=== PATIENT | male | born 1980 | race Caucasian/White ===

== ENCOUNTER → 2017-05-19 00:20 | Emergency (ER) | payer OTHER ==
[~2017-05-19 00:20] MED LIST: HYDROmorphone INJ* 1 MG/ML CARPUJECT SYRINGE IV SLOW PU ONE; Haloperidol INJ IV/IM* 5 MG/ML AMP IM ONE; LORazepam INJ* 2 MG/ML 1 ML VIAL IM ONE; diPHENhydraMINE IV* 50 MG/ML 1 ml VIAL (BENADRYL) IM ONE
--- NOTE | 2017-05-19 02:23 | ED ---
Ismael Milligan Alfonso, scribed for Amara Verduzco MD on 05/19/17 at 0132 . Psychiatric Complaint - HPI Summary HPI Summary: LEVEL 5 CAVEAT DUE TO no cooperation and mental health agitation This patient is a 36 year old M BIBA to [facility]. Pt with a complex medical history which is obtained by father and SO. Pt with a h/o testitcular cancer with known lung mets. Pt has receoved a BMT at [facility] in March. Pt had a round of chemotherapy in Apr and is scheduled for chemotherapy again in May. Per father, pt had blood work at [facility] on Wednesday which was "all normal" Pt had an appointment in [place] today. Pt had a private consult with his care provider Father and SO do not know the conversation but suspect he may have had a positive tox screen and further care may be withdrawn second to patient contract violation - however this is not clear to be the cause. This afternoon, but became enraged. Per report + ETOH. Pt took a beer bottle and struck self in head. Pt started screaming he wanted to and said he would kill himself. Pt does take extended release morphine several times a day. Pt states he is withdrawing from his narcotics. Upom arrival to the ED pt very agitated. Pt screaming, spitting at staff. Pt reported stated he wants to , he is going to kill himself. Patients medication reviewed this visit. - History Of Current Complaint Chief Complaint: EDMentalHealth Time Seen by Provider: 05/19/17 01:31 Hx Obtained From: Patient Onset/Duration: Sudden Onset, Lasting Hours, Still Present Timing: Constant Severity Currently: Severe Character: Angry - agitated and combative Aggravating Factor(s): Recent Stress Alleviating Factor(s): Nothing Has Suicidal: Reports: Thoughts, Demonstrates Gesture - cracked a beer bottle over his head. Ingestion History: Type/Name Of Drug - ETOH - Risk Factor(s) Completed Suicide Risk Factors: Negative - Allergies/Home Medications Allergies/Adverse Reactions: Allergies Allergy/AdvReac Type Severity Reaction Status Date / Time No Known Allergies Allergy Verified 11/03/16 13:21 PMH/Surg Hx/FS Hx/Imm Hx Previously Healthy: No Endocrine/Hematology History: Denies: Hx Anticoagulant Therapy, Hx Diabetes, Hx Systemic Lupus Erythematosus Cardiovascular History: Denies: Hx Congestive Heart Failure, Hx Hypertension, Other Cardiovascular Problems/Disorders - POWER PORT PLACED 11/19/2015 Respiratory History: Reports: Hx Asthma - ONE AGO, PNEUMONIA, NO INHALERS, Hx Pneumonia, Other Respiratory Problems/Disorders - Pulmonary Nodules GI History: Reports: Other GI Disorders - CONSTIPATION History: Reports: Other Problems/Disorders - Difficulty starting stream of urine, OK NOW Denies: Hx Dialysis, Hx Renal Disease Musculoskeletal History: Reports: Hx Back Problems Denies: Hx Rheumatoid Arthritis Sensory History: Denies: Hx Contacts or Glasses, Hx Hearing Aid Opthamlomology History: Denies: Hx Contacts or Glasses Neurological History: Denies: Other Neuro Impairments/Disorders Psychiatric History: Reports: Hx Anxiety Denies: Hx Eating Disorder, Hx Suicide Attempt - Cancer History Cancer Type, Location and Year: TESTICULAR Hx Chemotherapy: No - Surgical History Surgery Procedure, Year, and Place: LEFT Knee surgery, 1999, [place]. ORCHIECTOMY, RIGHT, [facility]. PORT PLACEMENT 11/2014. abdominal lymph node resection 2015 Hx Anesthesia Reactions: No Infectious Disease History: No Infectious Disease History: Denies: Hx Tuberculosis - Rule out, Traveled Outside the in Last 30 Days - Family History Family History: R & n/C - Social History Occupation: Unemployed Lives: With Family - So - recently moved to [place] Alcohol Use: etoh 05/19/17 Alcohol Amount: etoh 05/19/17 Hx Substance Use: Yes - occasional inhaled cocaine Substance Use Type: Reports: None Substance Use Comment - Amount & Last Used: hx: Cocaine use - denies at present Hx Tobacco Use: Yes - 1/2 ppd, previously 1.5 ppd Smoking Status (MU): Former Smoker Type: Cigarettes Amount Used/How Often: 1/2 PACK A DAY Length of Time of Smoking/Using Tobacco: 15 years Have You Smoked in the Last Year: Yes Review of Systems Negative: Fever Negative: Cough Positive: Other - blood at his posterior scalp Neurological: Other - SI, ETOH, "I only have a few weeks to fucking live because of my fucking balls," agitated, and combative All Other Systems Reviewed And Are Negative: No - Comments Additional Review of Systems Comments: limited second to pt not cooperative Physical Exam Triage Information Reviewed: Yes Vital Signs On Initial Exam: Initial Vitals Temp Pulse Resp BP Pulse Ox 98 F 85 18 132/89 100 05/19/17 00:20 05/19/17 00:20 05/19/17 00:20 05/19/17 00:20 05/19/17 00:20 Vital Signs Reviewed: Yes Completion Of Physical Exam Limited Due To: Level 5 Appearance: Positive: Pain Distress - Pt enraged, yelling fighting with staff Skin: Positive: Other - pt with non suturable wound to scalp left upper anterior chest wall port Eyes: Positive: Conjunctiva Inflammed ENT: Positive: Hearing grossly normal Respiratory/Lung Sounds: Negative: Tracheal Deviation, Wheezes, Unable to speak in full sentences Cardiovascular: Positive: Normal, RRR - tachycardic Abdomen Description: Positive: Nontender, No Organomegaly, Soft Musculoskeletal: Positive: Normal, Other - BRICE - aggressively fighting Neurological: Positive: Sensory/Motor Intact, Alert, Oriented to Person Place, Time Psychiatric: Positive: Patient Uncooperative for Exam AVPU Assessment: Alert - [place] Coma Scale Best Eye Response: 4 - Spontaneous Best Motor Response: 6 - Obeys Commands Best Verbal Response: 5 - Oriented Coma Scale Total: 15 Diagnostics - Vital Signs Vital Signs Temp Pulse Resp BP Pulse Ox 05/19/17 00:20 98 F 85 18 132/89 100 - Laboratory Result Diagrams: 05/19/17 03:58 05/19/17 03:58 Lab Statement: Any lab studies that have been ordered have been reviewed, and results considered in the medical decision making process. Re-Evaluation - Re-Evaluation First Eval Re-Evaluation Time: 02:16 Comment: Spoke with the patient's father regarding the patient's case. Obtained additional history as presented in HPI. Pt calm and resting - on tele VSS. reviewed labs mariah Gill dated Thursday 05/17 - wnl Second Eval Re-Evaluation Time: 03:34 Change: Improved Comment: He is out of restraints. He is noncombative and cooperative. He reports he is in pain and is requesting his scheduled morphine. He is in agreement to place an IV. His vitals are good. He has no other complaints. Third Eval Change: Improved - Pt resting VSS labs non concerning awaiting uds MHE Course/Dx - Course Assessment/Plan: Pt presents with violent and angry yelling with thoughts to kill self. Unable to calm or rediorect pt with verbal interventions. Pt medicated and had to be placed in restraints for safety of pt and staff. Pt's father was present throughout interaction and worked closely with staff to redirect and calm. Will perform additonal examination and work to remove restrains cheryl. Pt on telemetry. Father comfortable and in agreement with plan - Differential Dx/Clinical Impression Provider Diagnosis: Depression Discharge - Discharge Plan Condition: Improved Disposition: OTHER Discharge Disposition Comment: Pt signed out Dr. Christensen - 0700 - [facility] pending Referrals: Stacie Hernandes MD [Primary Care Provider] - The documentation as recorded by the Ismael cervantes Alfonso accurately reflects the service I personally performed and the decisions made by , Amara Verduzco MD.
[2017-05-19 04:12] LABS: Hematocrit 34 % (42-52); Hemoglobin 11.3 g/dl (14.0-18.0); Mean Corpuscular HGB Conc 33 g/dl (31-36); Mean Corpuscular Hemoglobin 33 pg (27-31); Mean Corpuscular Volume 98 fL (80-94); Mean Platelet Volume 7 um3 (7.4-10.4); Red Blood Count 3.46 10^6/ul (4.0-5.4); Red Cell Distribution Width 18 % (10.5-15); White Blood Count 10.4 10^3/ul (3.5-10.8)
[2017-05-19 04:21] LABS: Acetaminophen < 15 mcg/mL; Alcohol 152 mg/dL (<10); Salicylate < 2.50 mg/dL (<30)
[2017-05-19 04:22] LABS: ALT 17 U/L (7-52); AST 33 U/L (13-39); Albumin 4.1 g/dL (3.2-5.2); Alkaline Phosphatase 63 U/L (34-104); Anion Gap 12 mmol/L (2-11); BUN/Creatinine Ratio 12.8 (8-20); Blood Urea Nitrogen 11 mg/dL (6-24); CO2 Carbon Dioxide 20 mmol/L (22-32); Calcium 8.9 mg/dL (8.6-10.3); Chloride 103 mmol/L (101-111); EGFR African American 130.9 (>60); EGFR Non-African American 101.8 (>60); Globulin 3.5 g/dL (2-4); Glucose 70 mg/dL (70-100); Potassium 4.1 mmol/L (3.5-5.0); Sodium 135 mmol/L (133-145); Total Protein 7.6 g/dL (6.4-8.9)
--- NOTE | 2017-05-19 09:07 | CONSULT ---
Consult Consult: Mr. Cartagena came in last night intoxicated and very upset. He was medically cleared and then had a MHE. They felt that he was appropriate to go home and he was D/C'd in stable condition with a diagnosis of situational depression.
[2017-05-19 09:31] VITALS: BP 116/70
== END ==
LOC: ED 00:20
DX: F32.9 Major depressive disorder, single episode, unspecified (principal); R45.851 Suicidal ideations; Z87.891 Personal history of nicotine dependence; Z85.47 Personal history of malignant neoplasm of testis; Z92.21 Personal history of antineoplastic chemotherapy
CPT/HCPCS: 36415; 80053; 80320; 80329; 84443; 85025; 96374; 96375; 99285; G0480; J1170; J1200; J2060

== ENCOUNTER 2017-06-29 20:33 | Emergency (ER) | payer OTHER ==
--- NOTE | 2017-06-29 22:50 | ED ---
Ismael Milligan Alfonso, scribed for Anthony Aragon MD on 06/29/17 at 2113 . Shortness of Breath - HPI Summary HPI Summary: This patient is a 36 year old M [facility]cologist for a known left-sided PNX accompanied by father and woman with a chief complaint of SOB since 6 weeks ago. The patient rates the pain 7/10 in severity. Symptoms alleviated by nothing. - History of Current Complaint Chief Complaint: EDShortnessOfBreath Time Seen by Provider: 06/29/17 20:46 Hx Obtained From: Patient, Medical Records Onset/Duration: Still Present Timing: Constant Current Severity: Severe - 7/10 pain Alleviating Factors: Nothing - Allergy/Home Medications Allergies/Adverse Reactions: Allergies Allergy/AdvReac Type Severity Reaction Status Date / Time No Known Allergies Allergy Verified 06/17/17 15:37 PMH/Surg Hx/FS Hx/Imm Hx Endocrine/Hematology History: Denies: Hx Anticoagulant Therapy, Hx Diabetes, Hx Systemic Lupus Erythematosus Cardiovascular History: Denies: Hx Congestive Heart Failure, Hx Hypertension, Hx Pacemaker/ICD, Other Cardiovascular Problems/Disorders - POWER PORT PLACED 11/19/2015 Respiratory History: Reports: Hx Asthma - ONE AGO, PNEUMONIA, NO INHALERS, Hx Pneumonia, Other Respiratory Problems/Disorders - Pulmonary Nodules GI History: Reports: Other GI Disorders - CONSTIPATION History: Reports: Other Problems/Disorders - Difficulty starting stream of urine, OK NOW Denies: Hx Dialysis, Hx Renal Disease Musculoskeletal History: Reports: Hx Back Problems Denies: Hx Rheumatoid Arthritis Sensory History: Denies: Hx Contacts or Glasses, Hx Hearing Aid Opthamlomology History: Denies: Hx Contacts or Glasses Neurological History: Denies: Other Neuro Impairments/Disorders Psychiatric History: Reports: Hx Anxiety Denies: Hx Eating Disorder, Hx Panic Disorder, Hx Suicide Attempt - Cancer History Cancer Type, Location and Year: TESTICULAR Hx Chemotherapy: No - Surgical History Surgery Procedure, Year, and Place: LEFT Knee surgery, 1999, [place]. ORCHIECTOMY, RIGHT, [facility]. PORT PLACEMENT 11/2014. abdominal lymph node resection 2015 Hx Anesthesia Reactions: No Infectious Disease History: No Infectious Disease History: Denies: Hx Tuberculosis - Rule out, Traveled Outside the [place] in Last 30 Days - Family History Known Family History: Positive: Cardiac Disease - 65 father - Social History Alcohol Use: etoh 05/19/17 Alcohol Amount: etoh 05/19/17 Hx Substance Use: Yes - occasional inhaled cocaine Substance Use Type: Reports: None Substance Use Comment - Amount & Last Used: hx: Cocaine use - denies at present Hx Tobacco Use: Yes - 1/2 ppd, previously 1.5 ppd Smoking Status (MU): Former Smoker Type: Cigarettes Amount Used/How Often: 1/2 PACK A DAY Length of Time of Smoking/Using Tobacco: 15 years Have You Smoked in the Last Year: Yes Review of Systems Negative: Fever Positive: Shortness Of Breath, Other - Left-sided PNX All Other Systems Reviewed And Are Negative: Yes Physical Exam - Summary Physical Exam Summary: General: mildly ill-appearing, no pain distress Skin: warm, color reflects adequate perfusion, dry Head: normal Eyes: EOMI, MYRIAM ENT: normal Neck: supple, nontender Respiratory: Decreased breath sounds on the left. No acute respiratory distress. Cardiovascular: RRR Abdomen: soft, nontender Bowel: present Musculoskeletal: normal, strength/ROM intact Neurological: normal, sensory/motor intact, A&O x3 Psychological: affect/mood appropriate Triage Information Reviewed: Yes Vital Signs On Initial Exam: Initial Vitals Temp Pulse Resp BP Pulse Ox 98.4 F 82 18 124/68 94 06/29/17 20:40 06/29/17 20:40 06/29/17 20:40 06/29/17 20:40 06/29/17 20:40 Vital Signs Reviewed: Yes Diagnostics - Vital Signs Vital Signs Temp Pulse Resp BP Pulse Ox 06/29/17 20:40 98.4 F 82 18 124/68 94 - Laboratory Lab Statement: Any lab studies that have been ordered have been reviewed, and results considered in the medical decision making process. - Radiology CXR Radiology Interpretation Completed By: Radiologist - 1. Large LEFT pneumothorax with slight rightward mediastinal shift concerning for early tension component. 2. Bilateral pulmonary metastasis without gross change from June 16, 2017 CT. 3. Results discussed with Dr. Tobias 06/29/2017 5:14 PM EST. The patient was contacted and instructed to return to the [facility] ED. CXR 2 Radiology Interpretation Completed By: ED Physician - PNX almost completely resolved Course/Dx - Course Course Of Treatment: DR CHANG, SURGERY, SAW PATIENT IN ED AND PLACED A CHEST TUBE. REPEAT CXR SHOW SIGNIFICANT IMPROVEMENT. DISCHARGE HOME; RETURN IF WORSE. CRITICAL CARE TIME LESS THAN 30 MINUTES. - Diagnoses Provider Diagnoses: Pneumothorax on left - Physician Notifications Discussed Care of Patient With: Stefano Chang Instructed by Provider To: Other - Consulted Dr. Chang (surgeon) regarding the case. Discharge - Discharge Plan Condition: Stable Disposition: HOME Patient Education Materials: Spontaneous Pneumothorax (ED) Referrals: Pedro Luis Tobias MD [Medical Doctor] - 3 Days Stefano Chang MD [Medical Doctor] - Additional Instructions: RETURN TO THE EMERGENCY DEPARTMENT FOR CHANGING OR WORSENING SYMPTOMS. The documentation as recorded by the Ismael cervantes Alfonso accurately reflects the service I personally performed and the decisions made by me, Anthony Aragon MD.
[2017-06-29 22:55] VITALS: BP 118/71
--- NOTE | 2017-06-30 01:59 | CONS ---
CC: Stacie Hernandes MD * CONSULTATION REPORT: DATE OF CONSULT: 06/29/17 - EMERGENCY DEPT REASON FOR CONSULT: Left pneumothorax. HISTORY OF PRESENT ILLNESS: This is an unfortunate 36-year-old gentleman with a history of testicular cancer metastatic to the lungs, who is to start a clinical trial of immunotherapy at [facility] this coming Wednesday. As part of his pretreatment evaluation, he was sent for an x- ray of the chest. Of note, he did have a history of prior spontaneous pneumothorax that was noted on a CT scan when he was seen in [facility] in May. He had finding on today's x-ray of a large left pneumothorax with slight mediastinal shift and was therefore directed to the emergency room from the [place] office. The patient does not report any increased shortness of breath , but he does report he had some nausea and vomiting yesterday, which he thinks may have been the etiology to his pneumothorax. PAST MEDICAL HISTORY: Significant for testicular carcinoma, history of spontaneous pneumothorax. PAST SURGICAL HISTORY: Significant for orchiectomy, PowerPort placement. MEDICATIONS: He takes: 1. Roxicodone. 2. Klonopin. 3. Bactrim. 4. Noxafil. 5. Zofran. 6. Morphine. 7. Vitamin D3. 8. Wellbutrin. 9. Zovirax. ALLERGIES: None known. SOCIAL HISTORY: He has a history of tobacco and alcohol use. PHYSICAL EXAM: He is 6 feet 2 inches, 150 pounds. Cachetic appearing 36-year- old male. He appears in no acute distress. He has temporal wasting. Sclerae anicteric. Mucous membranes are moist. His chest is notable for PowerPort in the left subclavian site with decreased breath sounds on the left compared to the right. There is no use of accessory muscles of respiration. Trachea appears midline. RADIOGRAPHIC DATA: Chest x-ray shows large left pneumothorax with bilateral pulmonary masses. IMPRESSION: A 36-year-old male with metastatic testicular cancer with spontaneous left pneumothorax, second episode. PLAN/RECOMMENDATIONS: I discussed findings with the patient, his father and girlfriend who accompanied him. I explained the management options and ultimately, he did agree to placement of chest tube with Heimlich valve. The nature of the procedure, its indication, risks, benefits, and alternatives, and options of the treatment were discussed. Risks were explained include, but not limited to bleeding, infection, pain, scarring, and need for additional procedures. The patient had all questions answered. He stated understanding. He agreed to proceed. The patient will likely be discharged home this evening with plans to follow up in the [facility] office in 2 days with repeat x-ray to see if his chest tube could be removed at that time. [id number]/[facility] #: [id number] MTDD
--- NOTE | 2017-06-30 07:40 | RAD ---
INDICATION: Pneumothorax status post chest tube placement. COMPARISON: Comparison is made with a prior chest x-ray study of the same date from approximately 6 hours earlier. TECHNIQUE: A portable view of the chest was obtained. FINDINGS: There is a power port central venous catheter present on the right side. The catheter tip projects over the region of the superior vena cava. There is a Heimlich-type chest tube present centered toward the left lung apex. There has been reexpansion of the left lung with interval decrease in size of the left pneumothorax. There is a small residual left apical pneumothorax measuring approximately 5 mm from the lung apex. No pleural effusion is seen. There are multiple bilateral pulmonary nodules. The largest nodule projects above the left lung base measuring 3.4 cm in size. IMPRESSION: 1. STATUS POST LEFT SIDE CHEST TUBE PLACEMENT INTERVAL DECREASE IN SIZE OF THE LEFT PNEUMOTHORAX WHICH IS CURRENTLY SMALL. 2. MULTIPLE BILATERAL PULMONARY NODULES.
--- NOTE | 2017-06-30 10:00 | PRO ---
CC: Stacie Hernandes MD. * DATE OF PROCEDURE: 06/29/17 - EMERGENCY DEPT SURGEON: Stefano Chang MD. FILM CREW MEMBER: None. ANESTHESIA: 1% lidocaine plain, local. PREOPERATIVE DIAGNOSIS: Left pneumothorax, spontaneous. POSTPROCEDURE DIAGNOSIS: Left pneumothorax, spontaneous. PROCEDURE: Left chest tube placement with Heimlich valve. ESTIMATED BLOOD LOSS: None. SPECIMEN: None. DRAINS: 8-Estonian chest tube. COMPLICATIONS: None. PROCEDURE IN DETAIL: The patient was positioned Semi-Doe in the emergency room. The site was prepped and draped in sterile fashion. A time-out was performed. Local anesthetic was infiltrated just medial to the indwelling power port and then needle was advanced into the pleural space and air was aspirated. A camilo was made in the skin with an 11-blade scalpel and then the catheter was advanced into the pleural space and the needle was removed. Air exchange was noted. The catheter was connected to Heimlich valve. The catheter was sutured in place with 2-0 silk at two separate sites and then dressed with a Tegaderm dressing and secured with tape to the chest wall. The patient tolerated the procedure well. Postprocedure x- rays confirmed proper placement of the tube and improvement of the pneumothorax. [id number]/[facility] #: [id number] MTDD
== END 2017-06-29 22:47 | disposition home or self-care (01) ==
LOC: ED 20:33
DX: J93.9 Pneumothorax, unspecified (principal); C62.90 Malignant neoplasm of unspecified testis, unspecified whether descended or undescended; C78.02 Secondary malignant neoplasm of left lung; C78.01 Secondary malignant neoplasm of right lung; J45.909 Unspecified asthma, uncomplicated; K59.00 Constipation, unspecified; F41.9 Anxiety disorder, unspecified; Z87.891 Personal history of nicotine dependence
CPT/HCPCS: 71010

== ENCOUNTER 2017-07-02 17:35 | Inpatient (IN) | payer OTHER ==
[2017-07-02] MEDS ORDERED: HYDROmorphone INJ* 2 MG/ML CARPUJECT SYRINGE IV SLOW PU ONE (18:25)
[2017-07-02] MEDS ORDERED: NS 0.9% 1000 ML* 1,000 ML IV ONE ×2 (18:25→19:22)
[2017-07-02] MEDS ORDERED: Ondansetron INJ* 2 MG/ML VIAL IV ONE (18:26)
[2017-07-02] MEDS ORDERED: clonazePAM TAB(*) 0.5 MG PO PRN (19:17)
--- NOTE | 2017-07-02 19:47 | ED ---
Ismael Milligan Alfonso, scribed for Blaise Singletary MD on 07/02/17 at 1922 . Complex/Multi-Sys Presentation - HPI Summary HPI Summary: This patient is a 36 year old M presenting to [facility] accompanied by girlfriend and father with a chief complaint of diffuse abdominal pain since two weeks ago. He has known metastasizing testicular cancer which was shown to be progressing, as well as a SBO, in a recent CT A/P from [facility]. He has undergone chemotherapy with stem cell rescue and was told today he was not a good candidate for an immunotherapy trial. He states It has been pretty horrible, but finally a little more chilled out and my bowel felt crunched up. The patient rates the pain 6/10 in severity. Symptoms alleviated by nothing. Patient reports BM (every two days), vomiting (last night and twice this morning ), and abdominal distention. Patient denies fever. - History Of Current Complaint Chief Complaint: EDGeneral Hx Obtained From: Patient, Medical Records Onset/Duration: Gradual Onset, Lasting Weeks - 2, Still Present Timing: Constant Severity Currently: Moderate - 6/10 pain Alleviating Factor(s): nothing Associated Signs And Symptoms: Positive: Other - BM (every two days), vomiting ( last night and twice this morning), and abdominal distention. Patient denies fever. - Allergies/Home Medications Allergies/Adverse Reactions: Allergies Allergy/AdvReac Type Severity Reaction Status Date / Time No Known Allergies Allergy Verified 06/17/17 15:37 PMH/Surg Hx/FS Hx/Imm Hx Endocrine/Hematology History: Denies: Hx Anticoagulant Therapy, Hx Diabetes, Hx Systemic Lupus Erythematosus Cardiovascular History: Denies: Hx Congestive Heart Failure, Hx Hypertension, Hx Pacemaker/ICD, Other Cardiovascular Problems/Disorders - POWER PORT PLACED 11/19/2015 Respiratory History: Reports: Hx Asthma - ONE AGO, PNEUMONIA, NO INHALERS, Hx Pneumonia, Other Respiratory Problems/Disorders - Pulmonary Nodules GI History: Reports: Other GI Disorders - CONSTIPATION History: Reports: Other Problems/Disorders - Difficulty starting stream of urine, OK NOW Denies: Hx Dialysis, Hx Renal Disease Musculoskeletal History: Reports: Hx Back Problems Denies: Hx Rheumatoid Arthritis Sensory History: Denies: Hx Contacts or Glasses, Hx Hearing Aid Opthamlomology History: Denies: Hx Contacts or Glasses Neurological History: Denies: Other Neuro Impairments/Disorders Psychiatric History: Reports: Hx Anxiety Denies: Hx Eating Disorder, Hx Panic Disorder, Hx Suicide Attempt - Cancer History Cancer Type, Location and Year: TESTICULAR Hx Chemotherapy: Yes - Surgical History Surgery Procedure, Year, and Place: LEFT Knee surgery, 1999, [place]. ORCHIECTOMY, RIGHT, [facility] [place]. PORT PLACEMENT 11/2014. abdominal lymph node resection 2016 Hx Anesthesia Reactions: No Infectious Disease History: No Infectious Disease History: Denies: Hx Tuberculosis - Rule out, Traveled Outside the [place] in Last 30 Days - Family History Known Family History: Positive: Cardiac Disease - 65 father - Social History Alcohol Use: None Alcohol Amount: etoh 05/19/17 Hx Substance Use: Yes - occasional inhaled cocaine Substance Use Type: Reports: Cocaine, Marijuana Substance Use Comment - Amount & Last Used: hx: Cocaine use - denies at present Hx Tobacco Use: Yes - 1/2 ppd, previously 1.5 ppd Smoking Status (MU): Former Smoker Type: Cigarettes Amount Used/How Often: 1/2 PACK A DAY Length of Time of Smoking/Using Tobacco: 15 years Have You Smoked in the Last Year: Yes Review of Systems Negative: Fever Positive: Abdominal Pain, Vomiting, Other - BM, abd distention All Other Systems Reviewed And Are Negative: Yes Physical Exam - Summary Physical Exam Summary: Appearance: Well-appearing, Well-nourished Sin: Warm and dry, Midline abdomen scar from chest to umbilicus. Chest catheter draining clear yellow fluid. Port in place. Eyes: Normal ENT: Dry mucous membranes Neck: Supple, nontender CV: normal s1s2 Abdomen: Soft, Generalized abdominal tenderness to palpation Bowel: Present Musculoskeletal: Normal, Strength/ROM Intact Neurological:k Normal, A&Ox3 Psychiatric: Normal, Conversational Triage Information Reviewed: Yes Vital Signs On Initial Exam: Initial Vitals Temp Pulse Resp BP Pulse Ox 99.3 F 70 19 235/102 97 07/02/17 17:56 07/02/17 17:56 07/02/17 17:56 07/02/17 17:56 07/02/17 17:56 Vital Signs Reviewed: Yes - [place] Coma Scale Coma Scale Total: 15 Diagnostics - Vital Signs Vital Signs Temp Pulse Resp BP Pulse Ox 07/02/17 18:46 18 07/02/17 18:30 77 124/67 99 07/02/17 18:22 74 98 07/02/17 18:20 125/65 07/02/17 17:56 99.3 F 70 19 235/102 97 - Laboratory Lab Statement: Any lab studies that have been ordered have been reviewed, and results considered in the medical decision making process. Complex Multi-Symp Course/Dx Assessment/Plan: I had a conversation with oncologist Dr. Tobias who had already had admission and standing orders in place, pt in no acute distress. - Diagnoses Provider Diagnoses: Small bowel obstruction - Physician Notifications Discussed Care Of Patient With: Pedro Luis Tobias Time Discussed With Above Provider: 19:31 Instructed by Provider To: Other - Consulted Dr. Tobias (oncologist) at 1931 regarding the patients case, and he will admit the patient and has already put in orders. Discharge - Discharge Plan Condition: Stable Disposition: ADMITTED TO [facility] Referrals: Stacie Hernandes MD [Primary Care Provider] - The documentation as recorded by the Ismael cervantes Alfonso accurately reflects the service I personally performed and the decisions made by me, Blaise Singletary MD.
[2017-07-02] MEDS: Morphine TAB Extended Release (*) 30 MG TAB.ER PO SCH (21:12)
[2017-07-02] MEDS: Docusate CAP* 100 MG PO SCH (21:13)
[2017-07-02] MEDS: HYDROmorphone INJ* 1 MG/ML CARPUJECT SYRINGE IV SLOW PU PRN ×2 (21:14→23:16)
[2017-07-02] MEDS: Senna TAB PO SCH (21:14)
[2017-07-02] MEDS: Ondansetron INJ* 2 MG/ML VIAL IV PRN (21:14)
[2017-07-02] MEDS: Enoxaparin(*) 40 MG/0.4 ML SYR SUBCUT SCH (21:15)
[2017-07-03] MEDS: HYDROmorphone INJ* 1 MG/ML CARPUJECT SYRINGE IV SLOW PU PRN ×4 (01:17→09:38)
[2017-07-03] MEDS: NS 0.9% 1000 ML* 1,000 ML IV SCH ×3 (01:33→22:56)
[2017-07-03] MEDS: Morphine TAB Extended Release (*) 30 MG TAB.ER PO SCH ×3 (05:19→22:27)
[2017-07-03] MEDS: Ondansetron INJ* 2 MG/ML VIAL IV PRN ×2 (08:06→18:23)
[2017-07-03] MEDS: Senna TAB PO SCH ×2 (08:32→21:00)
[2017-07-03] MEDS: Docusate CAP* 100 MG PO SCH ×2 (08:33→21:00)
--- NOTE | 2017-07-03 09:05 | RAD ---
INDICATION: Status post chest tube placement for pneumothorax. COMPARISON: Most recent comparison chest x-rays dated June 29, 2017 TECHNIQUE: PA and lateral views of the chest and 3 views of the abdomen were obtained. FINDINGS: Again seen is a left upper chest subclavian vein Mediport with the tip terminating at the cavoatrial junction. There is a smallbore chest tube overlying the left upper chest. The heart and mediastinum are normal in size and contour. There is no visible pneumothorax. There are 2 round nodules overlying the right lung measuring 2 and 2.1 cm similar to the prior chest x-ray. Overlying the right lung there is at least one pulmonary nodule measuring 1.5 cm in diameter. More inferiorly there is a smaller pulmonary nodule measuring approximately 1 cm. Visualized bones are normal for the patient's age. 3 views of the abdomen show air-filled dilated loops of small bowel measuring up to 3.3 cm in diameter. There is oral contrast in the distal colon and rectum. There is no evidence of free air including free air beneath the diaphragm. IMPRESSION: 1. NO LEFT-SIDED PNEUMOTHORAX IN THE PRESENCE OF A SMALL BORE CHEST TUBE. 2. MILDLY DILATED AIR-FILLED LOOPS OF SMALL BOWEL MEASURING 3.3 CM IN THE LEFT UPPER QUADRANT. 3. MULTIPLE PULMONARY NODULES ARE AGAIN NOTED.
[2017-07-03] MEDS: Acyclovir* 400 MG TAB PO SCH ×2 (11:00→20:59)
[2017-07-03] MEDS: POSACONAZOLE 100 MG PO SCH (11:01)
[2017-07-03] MEDS: ALPRAZolam TAB* 0.25 MG PO PRN ×2 (11:02→22:27)
[2017-07-03] MEDS: HYDROmorphone PCA* 20 MG/20 ML PCA.SYRING PCA SCH ×2 (12:05→22:42)
[2017-07-03 13:18] LABS: Hematocrit 21 % (42-52); Hemoglobin 7.2 g/dl (14.0-18.0); Mean Corpuscular HGB Conc 34 g/dl (31-36); Mean Corpuscular Hemoglobin 30 pg (27-31); Mean Corpuscular Volume 91 fL (80-94); Mean Platelet Volume 7 um3 (7.4-10.4); Red Blood Count 2.35 10^6/ul (4.0-5.4); Red Cell Distribution Width 16 % (10.5-15); White Blood Count 7.9 10^3/ul (3.5-10.8)
[2017-07-03 13:34] LABS: BUN/Creatinine Ratio 14.5 (8-20); Calcium 7.5 mg/dL (8.6-10.3); EGFR African American 136.4 (>60); EGFR Non-African American 106.1 (>60); Potassium 3.8 mmol/L (3.5-5.0)
--- NOTE | 2017-07-03 13:44 | PN ---
Progress Note - Progress Note Date of Service: 07/03/17 SOAP: Subjective: Admitted with SBO. Has Heimlich in place. No SOB or chest pain. Objective: Vital Signs Temp 98.2 F 07/03/17 03:49 Pulse 66 07/03/17 12:11 Resp 18 07/03/17 13:16 BP 121/54 07/03/17 12:11 Pulse Ox 97 07/03/17 12:34 Intake & Output 07/02/17 07/03/17 07/03/17 18:59 06:59 18:59 Intake Total 2474 0 Output Total 0 Balance 2474 0 Weight 145 lb 146 lb Intake: IV Fluids 2474 NS (0.9%) 1474 Oral 0 0 Output: Urine 0 Other: # Bowel Movements 0 # Voids 1 CXR reviewed and no PTX noted. Assessment: s/p PTX catheter/Heimlich. PTX resolved. Plan: Sutures remove and PTX catheter removed s\ difficulty. Dressing applied. Will f/u prn.
[2017-07-03] MEDS: Enoxaparin(*) 40 MG/0.4 ML SYR SUBCUT SCH (21:03)
[2017-07-03] MEDS: BuPROPion XL* 150 MG TAB.XL PO SCH (21:03)
[2017-07-03] MEDS: Prochlorperazine TAB* 10 MG PO PRN (22:53)
[2017-07-04] MEDS: Ondansetron INJ* 2 MG/ML VIAL IV PRN ×2 (08:35→20:35)
[2017-07-04] MEDS: Docusate CAP* 100 MG PO SCH ×2 (08:55→20:43)
[2017-07-04] MEDS: Senna TAB PO SCH ×2 (08:55→20:42)
[2017-07-04] MEDS: Acyclovir* 400 MG TAB PO SCH ×2 (08:56→22:41)
[2017-07-04] MEDS: POSACONAZOLE 100 MG PO SCH (08:57)
[2017-07-04] MEDS: BuPROPion XL* 150 MG TAB.XL PO SCH ×2 (09:00→20:43)
[2017-07-04] MEDS: Morphine TAB Extended Release (*) 30 MG TAB.ER PO SCH ×2 (10:50→22:42)
[2017-07-04] MEDS: HYDROmorphone PCA* 20 MG/20 ML PCA.SYRING PCA SCH (17:25)
[2017-07-04] MEDS: Enoxaparin(*) 40 MG/0.4 ML SYR SUBCUT SCH (22:23)
[2017-07-05] MEDS: Prochlorperazine TAB* 10 MG PO PRN (01:24)
--- NOTE | 2017-07-05 01:44 | HP ---
HISTORY AND PHYSICAL: DATE OF ADMISSION: 07/02/17 REASON FOR ADMISSION: Metastatic testicular cancer with severe abdominal pain along with nausea and vomiting. 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 On scans of 06/16, he had subsequent progression. He was in emergency room here 3 days ago after having had a rout ine chest x-ray. On that chest x-ray, he was found to have approximately 30% pneumothorax. Chest tu be with Heimlich valve was placed by Dr. Chang in order to allow the patient to be able to go to [facility] for a third opinion. He had been referred down there for a potential immunothe rapy trial. He reports that he has had approximately 2 to 3 weeks of increasing abdominal pain and w as seen in our office on 06/16/17. At that time he was feeling very poorly. Had similar chest pain still following the prior pneumothorax which had resolved. He was not eating well, getting filled up very easily. His abdominal pain has continued to worsen since that period of time. He has had almo st no oral intake for the past 2 days since having drunk oral contrast for CT scan at [facility] the day prior to admission. The pain is worse in his left thorax as well as the abdomen an d lower back and now has developed in the right hemithorax as well. He is currently on 30 mg of MS C ontin t.i.d., having previously been on 60 mg b.i.d. at the time of the transplant 3 months ago. He takes oxycodone 5 to 10 mg 2 to 3 times per day. The pain was 9/10 after taking the short-acting fransisco cotics. He does nap, some of the pain never really resolves. He is continuing to take Senokot-S 2 p ills twice a day, despite this has significant constipation. The patient was very hopeful several days ago and then went down to [facility] for pote ntial enrollment on the immunotherapy trial. He was told there that he was not a candidate for that trial and was extremely upset. He was offered admission at [facility] but preferred to come back here for admission here for better control of pain. PAST MEDICAL HISTORY: Describing the testicular cancer in more detail, he had presented with back pa in and cough, was found to have retroperitoneal adenopathy along with a right testicular mass and mul tiple lung nodules. 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 Beta-HCG was markedly elevated over 8 000 and then subsequently was over 10,000. There was a suspicion this might be nonseminoma given the elevation of the markers. He was treated with 2 cycles of BEP and then for cycles 3 and 4, bleomyci n was held due to severe decreased DLCO at 35% having originally been 90% prior to therapy. He also developed severe hearing loss related to the cisplatin. Scans following the 4 cycles of chemotherapy revealed significant improvement in disease but still with residual retroperitoneal adenopathy and s mall lung nodules. Pathology was reviewed at [place] and they found a small area of teratoma confirm ing this was a nonseminoma even at diagnosis. The patient underwent a retroperitoneal lymph node diss ection on 06/29/16 after the completion of his 4 cycles of chemotherapy. This revealed the remaining teratoma at 99% with 1% cystic trophoblastic tumor with no residual embryonal seminoma component. 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 Subsequent to this, the patient was found to be in relaps e with marked elevation of his markers as well as recurrent disease on scans. His beta hCG prior to the transplant had increased to 110,000 on March 28 and following the transplant was 14,500. Unfo rtunately, repeat marker on 05/17/17 had increased again to 27,000. A CT scan of the chest, abdomen, and pelvis on 05/18/17 did show bilateral pulmonary metastases with increased mass anterior t o the common iliac vessels. He was found to have a 10% pneumothorax which was treated conservatively and on subsequent CT was down to 1%. He had originally been planned for a tandem transplant but give n the mixed results and the rising hCG, the decision was made that he would not benefit from a second transplant. Instead, he was considered for an immunotherapy trial at [place] and then subsequently for an immunotherapy trial at [facility]. When seen in the office on 06/16/17 with angela bajwa increased symptoms, a CT scan was performed at [facility]. This revealed interval pro gression with multiple low attenuating hepatic parenchymal lesions not seen in the prior exam. Lung l esions showed interval progression of bilateral pulmonary nodules measuring up to 2.8 cm. There was also interval development of bulky retroperitoneal adenopathy measuring up to 12 cm x 9.4 cm in the a ortocaval and periaortic regions. There was a small amount of ascites. When seen at [facility] this week, repeat CT scan was performed a day prior to admission and this was compared to th e scan of 06/16/17. It was marked further progression. He now had multiple pulmonary nodules measur ing up to 3.3 cm. Liver lesions up to 3.9 cm and multiple liver lesions were seen. Adenopathy in th e lower pelvis and abdomen now measured up to 14.9 x 9.3 cm abutting the aorta and probably encasing bilateral common iliac arteries. There was mass effect in the inferior vena cava. There was no incr eased pelvic patt adenopathy. There were abnormally dilated air and fluid filled loops of small bow el in the right lower quadrant with a probable partial versus low-grade small bowel obstruction due t o the tethering of large abdominal pelvic mass. There was a trace left apical pneumothorax with the catheter in place, markedly improved from 30% pneumothorax seen on the left 2 days previously. Moder ate right hydroureter at the level of the lower abdominal pelvic mass was also noted. Past medical history is otherwise significant for history of substance abuse, cocaine, marijuana, and nicotine. History of chronic anxiety and had been previously on Klonopin and more recently on Wellb utrin and Xanax. Chronic pain syndrome related to a testicular cancer. 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 PAST SURGICAL HISTORY: Meniscus surgery in [place] in 1999, port placement in 2016, retroperitoneal l ymph node dissection in 2016. MEDICATIONS: 1. Xanax 0.25 mg t.i.d. p.r.n. 2. Bactrim 800/160, 1 tablet 3 times per week. 3. Wellbutrin 150 mg b.i.d. 4. Zofran 8 mg q.8 hours p.r.n. 5. Senokot-S 2 tablets b.i.d. 6. Acyclovir 400 mg b.i.d. 7. Posaconazole 300 mg daily. 8. Loperamide p.r.n. 9. Oxycodone 10 mg q.6 hours p.r.n. pain. 10. Morphine 30 mg t.i.d. ALLERGIES: None. FAMILY HISTORY: Noncontributory. SOCIAL HISTORY: The patient is accompanied to the emergency room by his father and by his girlfriend . He lives in [place]. He has previously been a smoker as noted above, but no longer smokes. No si gnificant history of alcohol. As noted above, a history of marijuana and cocaine use and abuse. REVIEW OF SYSTEMS: Denies any significant chest pain or shortness of breath. Denies any recent fever s, sweats, chills, cough, sore throat, or signs of infection. No significant night sweats or hot fla shes. Pain as discussed above. No significant neurologic complaints. Specifically no headaches, tin gling, numbness, or weakness. Does report some anxiety and depression, appropriately so. PHYSICAL EXAMINATION GENERAL: Cachetic appearing 36-year-old. VITAL SIGNS: Blood pressure 110/70, pulse 77. Afebrile. HEENT: PERRL, EOMI. No erythema or exudates. No palpable cervical or supraclavicular or axillary a denopathy. LUNGS: Clear. HEART: With Heimlich valve present on the left with no flutter of the valve. Heart rate regular with out murmurs, rubs, or gallops. ABDOMEN: Very tense and with active bowel sounds. No obvious masses, but significant tenderness thr oughout without guarding or rebound. EXTREMITIES: No clubbing, cyanosis, or edema. BACK: Modest tenderness over both kidneys and less so over the spine. LABORATORY STUDIES: Not obtained today. IMPRESSION: 1. A 36-year-old male with marked progression of a testicular cancer, having very little in the way of further therapeutic options. He is not a candidate for the immunotherapy that he had hoped to pro bably undergo. He is not a candidate for further bone marrow transplant. It is possible that he eb ht be able to have either a Taxol or [facility] in-based chemotherapy regimen with the likelihood o f these helping for any substantial period of time quite low. He wishes to further discuss this with Dr. Hernandes. He has been admitted at this time due to severe lack of pain control on this current regimen. He will be maintained on his MS Contin at 30 mg t.i.d. and given Dilaudid 2 mg every 2 hour s IV p.r.n. and if this is not adequate, doses will be increased. He has had significant problems wi th nausea and vomiting recently. Therefore, his narcotics will be given IV. He will also be given p .r.n. Zofran and p.r.n. Compazine. 2. He is status post bone marrow transplant and will be maintained on his medications to try to prev ent infection post transplant. These will include continuing his posaconazole, Bactrim, and acyclovi r. 3. Depression. Initially reported that he was on Klonopin but subsequently changed to Xanax after t he father who is a pharmacist explained that this has been changed recently. 4. The patient will be given Lovenox 40 mg subcu daily DVT prophylaxis. IV fluids will be continued as the patient has had very little oral intake for the past 36 hours prior to this admission. [id number]/[facility] #: [id number]
[2017-07-05] MEDS: NS 0.9% 1000 ML* 1,000 ML IV SCH (02:40)
[2017-07-05] MEDS: Ondansetron INJ* 2 MG/ML VIAL IV PRN (05:28)
[2017-07-05] MEDS: HYDROmorphone PCA* 20 MG/20 ML PCA.SYRING PCA SCH ×3 (05:46→21:19)
[2017-07-05 05:56] LABS: Comments Flag Yes
[2017-07-05 05:58] LABS: Hematocrit 18 % (42-52); Mean Corpuscular HGB Conc 34 g/dl (31-36); Mean Corpuscular Hemoglobin 30 pg (27-31); Mean Corpuscular Volume 90 fL (80-94); Mean Platelet Volume 7 um3 (7.4-10.4); Red Blood Count 1.95 10^6/ul (4.0-5.4); Red Cell Distribution Width 16 % (10.5-15); White Blood Count 6.4 10^3/ul (3.5-10.8)
[2017-07-05 06:01] LABS: Add Diff/Slide Review? Slide Review Added; Hemoglobin 5.9 g/dl (14.0-18.0)
[2017-07-05 06:22] LABS: BUN/Creatinine Ratio 13.8 (8-20); Calcium 7.8 mg/dL (8.6-10.3); EGFR African American 118.1 (>60); EGFR Non-African American 91.9 (>60); Potassium 4.2 mmol/L (3.5-5.0)
[2017-07-05 06:38] LABS: Hypochromasia 3+; Target Cells 1+
[2017-07-05] MEDS ORDERED: LORazepam INJ* 2 MG/ML 1 ML VIAL IV PUSH PRN (08:00)
[2017-07-05] MEDS: HYDROmorphone PCA* 20 MG/20 ML in PREMIX PCA SCH ×2 (08:05→14:27)
[2017-07-05 08:10] VITALS: BP 140/65
--- NOTE | 2017-07-05 08:51 | PN ---
Progress Note - Progress Note Date of Service: 07/05/17 SOAP: Subjective: significant bloating and abdominal pain this am. LAW ENFORCEMENT OFFICER not helping as much as it should. appears quite uncomfortable. Objective: Vital Signs Temp Pulse Resp BP Pulse Ox 97.7 F 98 18 140/65 100 07/05/17 07:31 07/05/17 07:31 07/05/17 08:05 07/05/17 07:31 07/05/17 07:31 cachectic perr eomi op dry dec bs left lung field tachycardic distended, tender throughout no le edema A+O x 3, nonfocal neurological exam Laboratory Last Values WBC 6.4 10^3/ul (3.5-10.8) 07/05/17 05:35 RBC 1.95 10^6/ul (4.0-5.4) L 07/05/17 05:35 Hgb 5.9 g/dl (14.0-18.0) L* 07/05/17 05:35 Hct 18 % (42-52) L 07/05/17 05:35 MCV 90 fL (80-94) 07/05/17 05:35 MCH 30 pg (27-31) 07/05/17 05:35 MCHC 34 g/dl (31-36) 07/05/17 05:35 RDW 16 % (10.5-15) H 07/05/17 05:35 Plt Count 172 10^3/ul (150-450) 07/05/17 05:35 MPV 7 um3 (7.4-10.4) L 07/05/17 05:35 Neut % (Auto) 78.4 % (38-83) 07/05/17 05:35 Lymph % (Auto) 6.1 % (25-47) L 07/05/17 05:35 [place] % (Auto) 15.0 % (1-9) H 07/05/17 05:35 Eos % (Auto) 0.3 % (0-6) 07/05/17 05:35 Baso % (Auto) 0.2 % (0-2) 07/05/17 05:35 Absolute Neuts (auto) 5.0 10^3/ul (1.5-7.7) 07/05/17 05:35 Absolute Lymphs (auto) 0.4 10^3/ul (1.0-4.8) L 07/05/17 05:35 Absolute Monos (auto) 1.0 10^3/ul (0-0.8) H 07/05/17 05:35 Absolute Eos (auto) 0 10^3/ul (0-0.6) 07/05/17 05:35 Absolute Basos (auto) 0 10^3/ul (0-0.2) 07/05/17 05:35 Absolute Nucleated RBC 0 10^3/ul 07/05/17 05:35 Nucleated RBC % 0 07/05/17 05:35 Normal RBC Morphology Not Reportable 07/05/17 05:35 Hypochromasia 3+ 07/05/17 05:35 Target Cells 1+ 07/05/17 05:35 Sodium 126 mmol/L (133-145) L 07/05/17 05:35 Potassium 4.2 mmol/L (3.5-5.0) 07/05/17 05:35 Chloride 97 mmol/L (101-111) L 07/05/17 05:35 Carbon Dioxide 22 mmol/L (22-32) 07/05/17 05:35 Anion Gap 7 mmol/L (2-11) 07/05/17 05:35 BUN 13 mg/dL (6-24) 07/05/17 05:35 Creatinine 0.94 mg/dL (0.67-1.17) 07/05/17 05:35 Est GFR ( Amer) 118.1 (>60) 07/05/17 05:35 Est GFR (Non-Af Amer) 91.9 (>60) 07/05/17 05:35 BUN/Creatinine Ratio 13.8 (8-20) 07/05/17 05:35 Glucose 114 mg/dL (70-100) H 07/05/17 05:35 Calcium 7.8 mg/dL (8.6-10.3) L 07/05/17 05:35 Blood Type O Positive 07/05/17 05:35 Antibody Screen Negative 07/05/17 05:35 Crossmatch See Detail 07/05/17 05:35 Assessment: 36 yo M w chemorefractory testicular CA who unfortunately has had rapidly progressive disease and rapid decline in functional status. I discussed this with Scott at length. I do not think he is a candidate for any further palliative therapy at this point and he is in agreement. We discussed hospice, which I do not think he will be able to do at home given his bowel obstruction and LAW ENFORCEMENT OFFICER needs. We discussed residence vs. inpatient. He would like to discuss with his family and I have requested a hospice informational. We discussed stopping all nonpalliative meds/measures, including blood transfusions and antibiotics. I have encouraged him to consider a NG tube for comfort but he is not interested at this point. Plan: -increase dilaudid with a basal rate of 1 mg /hr and 1 mg q30 mins -prn IV ativan -stop fluids, transfusions, antibiotics -FISH BIN TENDER -hospice consult
[2017-07-05] MEDS ORDERED: Sulfamethox/Trimethoprim DS 800/160* TAB PO SCH (09:00)
--- NOTE | 2017-07-05 12:58 | DS ---
- Discharge Summary Admission Date: 07/02/17 Discharge Diagnosis: 07/05/17 Discharge Diagnosis: 1. End Stage Testicular Cancer: transition to hospice 2. SBO: comfort measures only at this time, no NG per pt. request for now 3. Severe protein-caloric malnutrition: with severe loss of body wt and evidence of muscle wasting as well as cont.'d poor intake with SBO. Discharge Medications: 1. Dilaudid CERTIFIED CREDIT COUNSELOR 1 mg/hr continuous with 1 mg q30 min CERTIFIED CREDIT COUNSELOR bolus PRN 2. Ativan 0.5 mg IV or PO q4hrs PRN nausea/anxiety/agitation/insomnia 3. Zofran 4 mg IV or SL q4hrs PRN nausea Hospital Course: Please see admission note for full H&P, however briefly Mr. Cartagena is well known to our service d/t his unfortunate diagnosis of testicular cancer which is now chemo refractory and progressive through bone marrow transplant. He presented to the ER on Monday 07/02 following a visit @ [facility] [place] with progressive uncontrolled pain and evidence of SBO. He was admitted for pain control management and has received a consultation with hospice and palliative care. On admission he was started on a CERTIFIED CREDIT COUNSELOR and this has been slowly helping with his pain. He was offered a bed at the [facility] residence and has accepted this. He will be maintained on IV pain meds. For now he will not have an NG tube placed per his preference. His care will cont. to be managed by the oncology service line in collaboration with [facility]. The patient states good understanding of plan of care.
[2017-07-05] MEDS ORDERED: HYDROmorphone INJ* 2 MG/ML CARPUJECT SYRINGE IV SLOW PU ONE (13:07)
--- NOTE | 2017-07-05 16:36 | RAD ---
Indication: Evaluate NG tube placement. Single frontal view of the chest performed at 1618 hours was reviewed. Comparison is made with previous exam dated July 03, 2017. No mediastinal shift is noted. Nasogastric tube is in place with the tip in the stomach. Multiple masses are noted in the lung bases consistent with metastatic lung disease. IMPRESSION: NASOGASTRIC TUBE IS NOTED IN THE STOMACH. MULTIPLE PULMONARY LESIONS ARE NOTED. THIS IS UNCHANGED FROM JULY 03, 2017.
[2017-07-05] MEDS ORDERED: PROCHLORPERAZINE INJ 5 MG/ML 2 ML VIAL IV PRN (16:48)
[2017-07-05] MEDS: LORazepam INJ* 2 MG/ML 1 ML VIAL IV PUSH PRN ×2 (17:27→23:13)
[2017-07-06] MEDS: LORazepam INJ* 2 MG/ML 1 ML VIAL IV PUSH PRN ×2 (01:12→07:34)
[2017-07-06] MEDS: HYDROmorphone PCA* 20 MG/20 ML PCA.SYRING PCA SCH ×2 (02:17→08:00)
== END 2017-07-06 09:40 | disposition short-term general hospital (02) | DRG 500 ==
LOC: ED 17:35 → MED 19:12
PROVIDERS: ADMIT Internal Medicine Hematology & Oncology; ATTEND Internal Medicine Hematology & Oncology
PROC: 0WPBX0Z Removal of Drainage Device from Left Pleural Cavity, External Approach (ICD-10-PCS; principal; 2017-07-03)
DX: C62.90 Malignant neoplasm of unspecified testis, unspecified whether descended or undescended (principal); C79.9 Secondary malignant neoplasm of unspecified site; K56.609 Unspecified intestinal obstruction, unspecified as to partial versus complete obstruction; R64 Cachexia; Z94.81 Bone marrow transplant status; J93.9 Pneumothorax, unspecified; Z68.1 Body mass index [BMI] 19.9 or less, adult; Z92.21 Personal history of antineoplastic chemotherapy; K59.00 Constipation, unspecified; D64.9 Anemia, unspecified; Z87.01 Personal history of pneumonia (recurrent); R91.8 Other nonspecific abnormal finding of lung field; F41.9 Anxiety disorder, unspecified; Z82.49 Family history of ischemic heart disease and other diseases of the circulatory system; Z87.891 Personal history of nicotine dependence; F12.90 Cannabis use, unspecified, uncomplicated; R40.2412 Glasgow coma scale score 13-15, at arrival to emergency department; F32.9 Major depressive disorder, single episode, unspecified; G89.3 Neoplasm related pain (acute) (chronic); H91.09 Ototoxic hearing loss, unspecified ear
CPT/HCPCS: 36415; 71010; 71020; 74020; 80048; 85025; 86850; 86900; 86901; 86922; A9270-GY; J1170; J1642; J2060; J2405; Q0164